=== PATIENT | male | born 1945 | race Caucasian/White ===

== ENCOUNTER 2016-11-17 01:45 | Inpatient (IN) | payer MEDICARE ==
[2016-11-17 02:17] VITALS: BP 109/67
[2016-11-17] MEDS ORDERED: Magnesium Hydroxide (MOM) 30 mL UDC PO PRN (02:18)
--- NOTE | 2016-11-17 10:15 | Diagnostic Imaging Report ---
CHEST X-RAY: AP view INDICATION: Pneumonia COMPARISON: None FINDINGS: Chronic lung changes are seen with hyperinflated lungs. The left costophrenic angle is incompletely visualized. Bibasal pleural thickening is noted. Heart size is normal. Degenerative changes of spine are noted. IMPRESSION: Hyperinflated lungs and probable COPD. No focal consolidation identified.
--- NOTE | 2016-11-18 03:40 | History & Physical ---
ADMIT DATE: 11/17/2016 HISTORY OF PRESENT ILLNESS: This patient is a 71-year-old male patient, brought actually to [facility] ____ senior mental ____. Apparently, the patient was very aggressive and very confused, and the patient is known to have history of coronary artery disease, history of HI in the past, and I was not able to obtain much history from the patient, nor I was able to get any charts at this time. PAST MEDICAL HISTORY: As noted above. PAST SURGICAL HISTORY: As noted above. FAMILY HISTORY: Unremarkable. PHYSICAL EXAMINATION: GENERAL: The patient is awake, alert, complaining of wanting to go home. HEAD: Normal. ENT: Normal. NECK: Supple, nontender. LUNGS: Clear. CARDIOVASCULAR SYSTEM: S1, S2 heard. ABDOMEN: Soft. Bowel sounds are heard. CENTRAL NERVOUS SYSTEM: Grossly normal. DIAGNOSES: Acute psychosis, history of coronary artery disease, history of myocardial infarction, ____ I did not get much more information from the patient regarding his medication as well as regarding ____ diseases and I will follow along with Dr. Parker. JOB# [id number]
--- NOTE | 2016-11-18 08:17 | Psychosocial Evaluation ---
DATE OF SERVICE: 11/17/2016 IDENTIFYING DATA: IDENTIFYING DATA: The patient is a 71-year-old male, living by himself, information obtained by interviewing the patient as well as reviewing the admission papers and they are reliable. JUSTIFICATION OF HOSPITALIZATION: The patient is admitted here on a 5150 as a danger to self and a danger to others. 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 The patient has been evaluated by the [place] [employer] and has been placed on a 5150 as a danger to self and danger to others and has been brought over here. The patient prior to the hospitalization has been mentioning he was on the Zyprexa for his bipolar disorder and also has been taking the Prozac, but has not taken them for a while. The patient's sleep and appetite prior to the hospitalization are reported to be poor. PAST PSYCHIATRIC HISTORY: The patient denies any previous psychiatric hospitalizations, but that may not be true. MEDICAL HISTORY: The patient denies any major medical problems. SUBSTANCE ABUSE HISTORY: The patient has a history of abusing alcohol, but urine drug screen is positive for marijuana. SOCIAL HISTORY: The patient is stating that he has nothing to do with the family, they disowned him and everyone is fighting over his mother's house. The patient is living at a friend's place and he states that he has been staying in their backyard. STRENGTH AND ASSETS: The patient is motivated at this time. MENTAL STATUS EXAMINATION: The patient is a 71-year-old, looking his stated age, superficially cooperative. Eye contact is poor. Mood is noted to be irritable. Affect is constricted. Insight and judgment at this time are noted to be impaired. Impulse control seems to be poor. Coping skills are also noted to be poor. The patient has been having difficult time to cope with the stress. The patient is getting easily irritable and angry. The patient has paranoid delusions, but denies any command hallucinations at this time. The patient has been having acute mood swings. The patient is alert and oriented x 3. The patient is fully aware that he is in the hospital on a 72-hour hold. He is motivated for treatment at this time. DIAGNOSTIC IMPRESSION: AXIS I: A. Bipolar disorder mixed with psychotic symptoms. B. Polysubstance abuse. AXIS II: None. AXIS III: As per Dr. Hawkins. IMMEDIATE TREATMENT PLAN: The patient is going to be started on the Zyprexa and Ativan and Ambien going to be given on a p.r.n. basis. ESTIMATED LENGTH OF STAY: Three to five days. DISCHARGE CRITERIA: When the patient is no longer a threat to self or others and be able to cope up with the stress. JOB# [id number]
--- NOTE | 2016-11-18 21:25 | Progress Notes ---
DATE: 11/18/2016 SUBJECTIVE: The patient was seen in his room, asleep, but easily arousable. The patient appears to be confused, unable to converse in a normal conversation, otherwise the patient is in no acute distress. OBJECTIVE: VITAL SIGNS: Temperature 97.8, heart rate of 66, blood pressure of 133/72, respirations of 19, oxygen of 99% on room air. HEENT: Head is atraumatic and normocephalic. Eyes: Bilateral conjunctivae are clear. Bilateral pupils are equally round and reactive. NECK: Supple. No JVD. CARDIOVASCULAR: S1 and S2 without murmur. PULMONARY: Clear to auscultation. GASTROINTESTINAL: Soft and nontender without guarding. Positive bowel sounds. MUSCULOSKELETAL: No edema, no clubbing, no cyanosis. ASSESSMENT: 1. Acute psychosis. 2. History of myocardial infarction. 3. Coronary artery disease. PLAN: We will keep the patient as inpatient in Geropsych Unit. We will follow up with a psychiatrist to monitor the patient's behavior. Treatment plan will be discussed with Dr. Hawkins. JOB# [id number]
--- NOTE | 2016-11-19 06:24 | General Progress Note ---
Subjective - Review of Systems Events since last encounter: patient still confused Objective - Results Recent Labs: Laboratory Last Values POC Glucose 90 MG/DL (70 - 105) 11/17/16 06:28 - Physical Exam Vitals and I&O: Vital Signs Temp 98.2 F 11/18/16 14:00 Pulse 67 11/18/16 14:00 Resp 20 11/18/16 14:00 BP 122/72 11/18/16 14:00 Pulse Ox 98 11/18/16 14:00 Intake & Output 11/18/16 11/18/16 11/19/16 06:59 18:59 06:59 Intake Total 120 Balance 120 Intake: Oral 120 Other: # Voids 1 2 Active Medications: Current Medications Acetaminophen (Tylenol) 650 mg PO Q4HR PRN PRN Reason: Mild Pain / Temp above 100 Stop: 01/16/17 02:17 Diphenhydramine HCl (Benadryl) 50 mg PO TID PRN PRN Reason: Seasonal Allergies/Itching Stop: 01/16/17 17:00 Last Admin: 11/18/16 21:02 Dose: 50 mg Lorazepam (Ativan) 0.5 mg PO Q4HR PRN; Protocol PRN Reason: Anxiety Stop: 12/17/16 02:17 Magnesium Hydroxide (Milk Of Magnesia) 30 ml PO HS PRN PRN Reason: Constipation Zolpidem Tartrate (Ambien) 5 mg PO HS PRN PRN Reason: Insomnia Stop: 01/16/17 02:17
--- NOTE | 2016-11-19 08:32 | Progress Notes ---
DATE: 11/18/2016 PSYCHIATRIC PROGRESS NOTE TIME PATIENT SEEN: 10:45 a.m. SUBJECTIVE: Staff was spoken to. The patient is interviewed. Mood is noted to be irritable. Affect is constricted. Insight and judgment are noted to be still impaired. Impulse control seems to be poor. Coping skills are also noted to be very poor. The patient has no insight into his illness. The patient has been having difficult time to cope with the stress. The patient is still very paranoid and is not making much sense. The patient is stating that he is trying to clean the ____ from the trees. The patient is placed on Zyprexa and is able to tolerate the medications. PLAN: To continue the patient with the current medications and follow him up with the supportive therapy. JOB# [id number]
--- NOTE | 2016-11-20 06:31 | Progress Notes ---
DATE: 11/19/2016 PSYCHIATRIC PROGRESS NOTE TIME PATIENT SEEN: 2:25 p.m. SUBJECTIVE: Staff was spoken to. The patient is interviewed. Mood is noted to be dysphoric. Coping skills are noted to be poor. The patient has paranoid delusions, but denies any command hallucinations. The patient is reluctant to comply with the treatment. The patient has no tremor in the upper extremities. Gait seems to be improving today. ASSESSMENT: The patient is still psychotic and impulsive. PLAN: To place the patient on Zyprexa. I encouraged the patient to verbalize the concerns rather than to act out. JOB# [id number]
--- NOTE | 2016-11-20 09:49 | General Progress Note ---
Subjective - Review of Systems Events since last encounter: patient still confused Objective - Results Recent Labs: Laboratory Last Values POC Glucose 90 MG/DL (70 - 105) 11/17/16 06:28 - Physical Exam Vitals and I&O: Vital Signs Temp 98.3 F 11/20/16 05:52 Pulse 75 11/20/16 05:52 Resp 20 11/20/16 05:52 BP 152/92 11/20/16 05:52 Pulse Ox 99 11/20/16 05:52 Intake & Output 11/19/16 11/20/16 11/20/16 18:59 06:59 18:59 Intake Total 2200 120 Balance 2200 120 Intake: Oral 2200 120 Other: # Voids 4 2 # Bowel Movements 0 0 Active Medications: Current Medications Acetaminophen (Tylenol) 650 mg PO Q4HR PRN PRN Reason: Mild Pain / Temp above 100 Stop: 01/16/17 02:17 Diphenhydramine HCl (Benadryl) 50 mg PO TID PRN PRN Reason: Seasonal Allergies/Itching Stop: 01/16/17 17:00 Last Admin: 11/19/16 16:07 Dose: 50 mg Lorazepam (Ativan) 0.5 mg PO Q4HR PRN; Protocol PRN Reason: Anxiety Stop: 12/17/16 02:17 Last Admin: 11/19/16 16:07 Dose: 0.5 mg Magnesium Hydroxide (Milk Of Magnesia) 30 ml PO HS PRN PRN Reason: Constipation Olanzapine (Zyprexa) 5 mg PO HS JOVI PRN Reason: Protocol Stop: 01/18/17 20:59 Last Admin: 11/19/16 21:10 Dose: 5 mg Zolpidem Tartrate (Ambien) 5 mg PO HS PRN PRN Reason: Insomnia Stop: 01/16/17 02:17 General: No acute distress Neck: Supple Cardiovascular: Regular rate Abdomen: Bowel sounds, no Distended Assessment/Plan - Problem List Patient Problems: All Active Problems Acute psychosis (Acute) F23 CAD (coronary artery disease) (Acute) I25.10 H/O acute myocardial infarction (Acute) I25.2 - Plan Plan: monitor vitals/diet cpm
--- NOTE | 2016-11-20 23:48 | Progress Notes ---
DATE: 11/20/2016 PSYCHIATRIC PROGRESS NOTE TIME PATIENT SEEN: 10:15 a.m. SUBJECTIVE: Staff was spoken to. The patient is interviewed. Mood is noted to be irritable. Affect is constricted. The patient's insight and judgment at this time are noted to be impaired. Impulse control seems to be poor. Coping skills are also noted to be poor. The patient has been having difficult time to cope with the stress. No side effects to the medications are noted. The patient has been isolative and withdrawn at this time. The patient is very angry at the police in the [place] and ____ they brought him in here for no reason and patient is going on and on. The patient has been placed on Zyprexa, a small dose to help him and patient at this time is stating that he should not be on any medications. The patient has been drinking alcohol and has mild tremor in the upper extremities. ASSESSMENT: The patient is still paranoid. PLAN: To continue the patient with the supportive therapy. I encouraged the patient to verbalize the concerns rather than to act out. JOB# [id number]
--- NOTE | 2016-11-21 10:32 | General Progress Note ---
Subjective - Review of Systems Events since last encounter: patient is irritable Objective - Results Recent Labs: Laboratory Last Values POC Glucose 90 MG/DL (70 - 105) 11/17/16 06:28 - Physical Exam Vitals and I&O: Vital Signs Temp 97.8 F 11/21/16 06:32 Pulse 70 11/21/16 06:32 Resp 20 11/21/16 06:32 BP 133/76 11/21/16 06:32 Pulse Ox 98 11/21/16 06:32 Intake & Output 11/20/16 11/21/16 11/21/16 18:59 06:59 18:59 Intake Total 950 120 Balance 950 120 Intake: Oral 950 120 Other: # Voids 4 1 # Bowel Movements 2 0 Active Medications: Current Medications Acetaminophen (Tylenol) 650 mg PO Q4HR PRN PRN Reason: Mild Pain / Temp above 100 Stop: 01/16/17 02:17 Diphenhydramine HCl (Benadryl) 50 mg PO TID PRN PRN Reason: Seasonal Allergies/Itching Stop: 01/16/17 17:00 Last Admin: 11/21/16 08:29 Dose: 50 mg Lorazepam (Ativan) 0.5 mg PO Q4HR PRN; Protocol PRN Reason: Anxiety Stop: 12/17/16 02:17 Last Admin: 11/19/16 16:07 Dose: 0.5 mg Magnesium Hydroxide (Milk Of Magnesia) 30 ml PO HS PRN PRN Reason: Constipation Olanzapine (Zyprexa) 5 mg PO HS JOVI PRN Reason: Protocol Stop: 01/18/17 20:59 Last Admin: 11/20/16 20:43 Dose: 5 mg Zolpidem Tartrate (Ambien) 5 mg PO HS PRN PRN Reason: Insomnia Stop: 01/16/17 02:17 Last Admin: 11/20/16 21:30 Dose: 5 mg General: No acute distress HEENT: Atraumatic Neck: Supple Cardiovascular: Regular rate Abdomen: Bowel sounds, Distended Assessment/Plan - Problem List Patient Problems: All Active Problems Acute psychosis (Acute) F23 CAD (coronary artery disease) (Acute) I25.10 H/O acute myocardial infarction (Acute) I25.2 - Plan Plan: monitor vitals/diet cpm
--- NOTE | 2016-11-22 05:05 | Progress Notes ---
DATE: 11/21/2016 PSYCHIATRIC PROGRESS NOTE TIME PATIENT SEEN: 10:45 a.m. SUBJECTIVE: Staff was spoken to. The patient is interviewed. Mood is noted to be irritable. Affect is constricted. Insight and judgment are noted to be still impaired. Impulse control seems to be limited. Coping skills are also noted to be limited. The patient has been having difficult time to cope with the stress. The patient is very angry at the staff, police at the [place], and he states he does not want to go back there. The patient has no place to return to. ASSESSMENT: The patient is still grossly psychotic. PLAN: To continue the patient with supportive therapy and followup. JOB# [id number]
--- NOTE | 2016-11-22 14:53 | General Progress Note ---
Subjective - Review of Systems Events since last encounter: patient confused Objective - Results Recent Labs: Laboratory Last Values POC Glucose 90 MG/DL (70 - 105) 11/17/16 06:28 - Physical Exam Vitals and I&O: Vital Signs Temp 97.8 F 11/22/16 06:41 Pulse 87 11/22/16 06:41 Resp 20 11/22/16 06:41 BP 107/79 11/22/16 06:41 Pulse Ox 97 11/22/16 06:41 Intake & Output 11/21/16 11/22/16 11/22/16 18:59 06:59 18:59 Intake Total 1500 240 Balance 1500 240 Intake: Oral 1500 240 Other: # Voids 4 3 # Bowel Movements 1 0 Active Medications: Current Medications Acetaminophen (Tylenol) 650 mg PO Q4HR PRN PRN Reason: Mild Pain / Temp above 100 Stop: 01/16/17 02:17 Diphenhydramine HCl (Benadryl) 50 mg PO TID PRN PRN Reason: Seasonal Allergies/Itching Stop: 01/16/17 17:00 Last Admin: 11/22/16 10:03 Dose: 50 mg Lorazepam (Ativan) 0.5 mg PO Q4HR PRN; Protocol PRN Reason: Anxiety Stop: 12/17/16 02:17 Last Admin: 11/21/16 16:57 Dose: 0.5 mg Magnesium Hydroxide (Milk Of Magnesia) 30 ml PO HS PRN PRN Reason: Constipation Olanzapine (Zyprexa) 5 mg PO HS JOVI PRN Reason: Protocol Stop: 01/18/17 20:59 Last Admin: 11/21/16 20:19 Dose: 5 mg Zolpidem Tartrate (Ambien) 5 mg PO HS PRN PRN Reason: Insomnia Stop: 01/16/17 02:17 Last Admin: 11/20/16 21:30 Dose: 5 mg General: No acute distress HEENT: Atraumatic Cardiovascular: Regular rate Abdomen: Bowel sounds Assessment/Plan - Problem List Patient Problems: All Active Problems Acute psychosis (Acute) F23 CAD (coronary artery disease) (Acute) I25.10 H/O acute myocardial infarction (Acute) I25.2 - Plan Plan: monitor vitals/diet cpm
--- NOTE | 2016-11-22 16:16 | Admit Criteria Form ---
Admit Criteria Forms - Admit Criteria Diagnosis: PSYCHIATRIC DISORDERS Clinical Indications for Inpatient Care (Place 'X' for any and all applicable criteria): Ongoing inpatient care may be needed for ANY ONE of the following(1)(2)(3)(4)(6) (7)(8): [ ]I. Danger to self or others not manageable at lower level of care. [ ]II. Grave disability (eg, inability to perform self care necessary at lower level of care) [ ]III. Agitation or inappropriate behavior interfering with care for primary condition (eg, attempting to discontinue lines or drains prematurely, unable to cooperate with respiratory care) [X ]IV. Severe disability or disorder indicated by ALL of the following: [X ]a) Severe behavioral health disorder-related symptoms or condition indicated by ANY ONE of the following: [X ]i) Severe problem with cognition, memory, judgment, or impulse control [X ]ii) Severe clinical manifestations (eg, hallucinations , delusions, other acute psychotic symptoms, [place], extreme agitation or anxiety) [X ]b) Patient management at lower level of care is not feasible until acute intervention or modification is initiated. Extended stay beyond goal length of stay for the primary condition may be indicated when ANY ONE of the following is present: (1)(2)(3)(4): [ ]a) Patient is a danger to self or others and not manageable at lower level of care. [ ]b) Behavior crisis management, including physical or chemical restraints, is required and is not available at a lower level of care. [ ]c) Behavioral symptoms (e.g., agitation, somnolence, inappropriate behavior) are present, and are not manageable at a lower level of care. [ ]d) Patient cannot understand follow-up treatment and crisis plan. [ ]e) Provider and supports are not sufficiently available at lower level of care. [ ]f) Patient cannot participate (e.g., verify absence of plan for harm) and is in needed of monitoring. The [facility] content [facility] by [facility] has been revised. The portions of the content which have been revised are identified through the use of italic text or in bold, and [facility] has neither reviewed nor approved the modified material. All other unmodified content is copyright [facility]. Please see references footnoted in the original [facility] edition 2016 Admit Criteria Met?: Yes
--- NOTE | 2016-11-23 08:22 | General Progress Note ---
Subjective - Review of Systems Events since last encounter: patient continues to be irritable but not aggressive Objective - Results Recent Labs: Laboratory Last Values POC Glucose 90 MG/DL (70 - 105) 11/17/16 06:28 - Physical Exam Vitals and I&O: Vital Signs Temp 97 F 11/23/16 06:26 Pulse 95 11/23/16 06:26 Resp 20 11/23/16 06:26 BP 129/84 11/23/16 06:26 Pulse Ox 100 11/23/16 06:26 Intake & Output 11/22/16 11/23/16 11/23/16 18:59 06:59 18:59 Intake Total 1100 120 Balance 1100 120 Weight (lbs) 62.369 kg Intake: Oral 1100 120 Other: # Voids 4 3 # Bowel Movements 1 Active Medications: Current Medications Acetaminophen (Tylenol) 650 mg PO Q4HR PRN PRN Reason: Mild Pain / Temp above 100 Stop: 01/16/17 02:17 Diphenhydramine HCl (Benadryl) 50 mg PO TID PRN PRN Reason: Seasonal Allergies/Itching Stop: 01/16/17 17:00 Last Admin: 11/22/16 10:03 Dose: 50 mg Lorazepam (Ativan) 0.5 mg PO Q4HR PRN; Protocol PRN Reason: Anxiety Stop: 12/17/16 02:17 Last Admin: 11/21/16 16:57 Dose: 0.5 mg Magnesium Hydroxide (Milk Of Magnesia) 30 ml PO HS PRN PRN Reason: Constipation Olanzapine (Zyprexa) 10 mg PO HS JOVI PRN Reason: Protocol Stop: 01/21/17 19:57 Last Admin: 11/22/16 21:11 Dose: 10 mg Zolpidem Tartrate (Ambien) 5 mg PO HS PRN PRN Reason: Insomnia Stop: 01/16/17 02:17 Last Admin: 11/20/16 21:30 Dose: 5 mg General: No acute distress HEENT: Atraumatic Neck: Supple Cardiovascular: Regular rate Abdomen: Bowel sounds Assessment/Plan - Problem List Patient Problems: All Active Problems Acute psychosis (Acute) F23 CAD (coronary artery disease) (Acute) I25.10 H/O acute myocardial infarction (Acute) I25.2 - Plan Plan: monitor vitals/diet cpm Nutritional Asmnt/Malnutr-PDOC - Dietary Evaluation Malnutrition Findings (Please click <Entered> for more info): Nutritional Asmnt/Malnutrition Start: 11/22/16 16: 45 Text: Status: Complete Freq: Document 11/22/16 16:46 CHAN (Rec: 11/22/16 16:58 [email or web address]) Nutritional Asmnt/Malnutrition Patient General Information Nutritional Screening Diagnosis Diagnosis Bipolar disorder mixed with psychotic symptoms, polysubstance abuse, 5150 Pertinent Medical Hx/Surgical Hx CAD, CT Subjective Information 71 year old male, considered homeless. Spoke to pt resting in bed, pt was pleasant and cooperative. Pt curled up under blanket, limited physical assessment, however appears overall thin without significant wasting noted. Teeth intact, denied difficulties eating, no food preferences, no allergies, denied GI problems. Pt stated appetite usually good. Pt stated UBW 145-150lb. CBW via bedscale 137.5lb. Pt appeared unaware of this weight, denied recent weight loss/changes. Avg PO itnake 75-100% of meals since adm, meeting nutritional needs. Current Diet Order/ Nutrition Support Regular Pertinent Medications MOM Pertinent Labs Reviewed. Nutritional Hx/Data Height 1.75 m Height (Calculated Centimeters) 175.3 Current Weight (lbs) 62.369 kg Weight (Calculated Kilograms) 62.4 Weight (Calculated Grams) 15674.0 Usual body Weight (lbs) 145 [place] Body Weight 160 GI Symptoms Food Allergies No Skin Integrity/Comment: Yasir Pack. Skin intact. Current %PO Good (75-100%) Estimated Nutritional Goals BEE in Kcals: Using Current wt Calories/Kcals/Kg CBW 137.5lb/62.4kg Kcals Calculated 1560-1872kcal (25-30kcal/kg) Protein: Using Current wt Protein Calculated 62g (1g/kg) Fluid: ml 1560-1872ml (1ml/kcal) Nutritional Problem 1. Problem Problem No nutritional problem at this time. Intervention/Recommendation Comments 1. Continue with current diet order. Avg PO intake is adequate. 2. Monitor weight. CBW via bedscale 137.5lb, pt report UBW 145-150lb, pt denied recent weight changes. Expected Outcomes/Goals Expected Outcomes/Goals 1. PO intake conintue to meet at least 75% of estimated nutritional needs.
--- NOTE | 2016-11-23 19:56 | Progress Notes ---
DATE: 11/22/2016 PSYCHIATRIC PROGRESS NOTE TIME PATIENT SEEN: 6:30 p.m. SUBJECTIVE: Staff was spoken to. The patient is interviewed. Mood is noted to be irritable. Affect is constricted. Insight and judgment are noted to be still impaired. The patient is very argumentative and demanding. The patient has no place to return to. Continues to be very paranoid and has been mentioning that he was trying to prune the trees and he is picked up for no reason and he is very angry . ASSESSMENT: The patient is still psychotic and impulsive. PLAN: To increase the dose on the Zyprexa and followup. JOB# [id number]
--- NOTE | 2016-11-24 05:06 | Progress Notes ---
DATE: 11/23/2016 PSYCHIATRIC PROGRESS NOTE TIME PATIENT SEEN: 10:30 a.m. SUBJECTIVE: Staff was spoken to. The patient is interviewed. Mood is noted to be less irritable, paranoia is coming down. Insight and judgment are noted to be improving. No side effects to the medications are noted. The patient, however, has been stating that he was volunteering reason why he has been brought over here. The patient is stating that he has a place to stay. There is no reason for me to worry, and he wants to be discharged to the [facility]. ASSESSMENT: The patient is still psychotic. PLAN: To continue the Zyprexa and followup. JOB# [id number]
--- NOTE | 2016-11-24 15:18 | General Progress Note ---
Subjective - Review of Systems Events since last encounter: patient doing better Objective - Results Recent Labs: Laboratory Last Values POC Glucose 90 MG/DL (70 - 105) 11/17/16 06:28 - Physical Exam Vitals and I&O: Vital Signs Temp 97.6 F 11/24/16 06:34 Pulse 78 11/24/16 06:34 Resp 20 11/24/16 06:34 BP 134/87 11/24/16 06:34 Pulse Ox 97 11/24/16 06:34 Intake & Output 11/23/16 11/24/16 11/24/16 18:59 06:59 18:59 Intake Total 1200 120 Balance 1200 120 Intake: Oral 1200 120 Other: # Voids 4 3 # Bowel Movements 1 Active Medications: Current Medications Acetaminophen (Tylenol) 650 mg PO Q4HR PRN PRN Reason: Mild Pain / Temp above 100 Stop: 01/16/17 02:17 Diphenhydramine HCl (Benadryl) 50 mg PO TID PRN PRN Reason: Seasonal Allergies/Itching Stop: 01/16/17 17:00 Last Admin: 11/23/16 16:18 Dose: 50 mg Lorazepam (Ativan) 0.5 mg PO Q4HR PRN; Protocol PRN Reason: Anxiety Stop: 12/17/16 02:17 Last Admin: 11/21/16 16:57 Dose: 0.5 mg Magnesium Hydroxide (Milk Of Magnesia) 30 ml PO HS PRN PRN Reason: Constipation Olanzapine (Zyprexa) 10 mg PO HS JOVI PRN Reason: Protocol Stop: 01/21/17 19:57 Last Admin: 11/23/16 20:34 Dose: 10 mg Zolpidem Tartrate (Ambien) 5 mg PO HS PRN PRN Reason: Insomnia Stop: 01/16/17 02:17 Last Admin: 11/23/16 20:45 Dose: 5 mg General: No acute distress HEENT: Atraumatic Neck: Supple Cardiovascular: Regular rate Abdomen: Bowel sounds Assessment/Plan - Problem List Patient Problems: All Active Problems Acute psychosis (Acute) F23 CAD (coronary artery disease) (Acute) I25.10 H/O acute myocardial infarction (Acute) I25.2 - Plan Plan: monitor vitals/diet cpm Nutritional Asmnt/Malnutr-PDOC - Dietary Evaluation Malnutrition Findings (Please click <Entered> for more info): Nutritional Asmnt/Malnutrition Start: 11/22/16 16: 45 Text: Status: Complete Freq: Document 11/22/16 16:46 GSRONI (Rec: 11/22/16 16:58 [email or web address]) Nutritional Asmnt/Malnutrition Patient General Information Nutritional Screening Diagnosis Diagnosis Bipolar disorder mixed with psychotic symptoms, polysubstance abuse, 5150 Pertinent Medical Hx/Surgical Hx CAD, [place] Subjective Information 71 year old male, considered homeless. Spoke to pt resting in bed, pt was pleasant and cooperative. Pt curled up under blanket, limited physical assessment, however appears overall thin without significant wasting noted. Teeth intact, denied difficulties eating, no food preferences, no allergies, denied GI problems. Pt stated appetite usually good. Pt stated UBW 145-150lb. CBW via bedscale 137.5lb. Pt appeared unaware of this weight, denied recent weight loss/changes. Avg PO itnake 75-100% of meals since adm, meeting nutritional needs. Current Diet Order/ Nutrition Support Regular Pertinent Medications MOM Pertinent Labs Reviewed. Nutritional Hx/Data Height 1.75 m Height (Calculated Centimeters) 175.3 Current Weight (lbs) 62.369 kg Weight (Calculated Kilograms) 62.4 Weight (Calculated Grams) 97325.0 Usual body Weight (lbs) 145 [place] Body Weight 160 GI Symptoms Food Allergies No Skin Integrity/Comment: Yasir 20. Skin intact. Current %PO Good (75-100%) Estimated Nutritional Goals BEE in Kcals: Using Current wt Calories/Kcals/Kg CBW 137.5lb/62.4kg Kcals Calculated 1560-1872kcal (25-30kcal/kg) Protein: Using Current wt Protein Calculated 62g (1g/kg) Fluid: ml 1560-1872ml (1ml/kcal) Nutritional Problem 1. Problem Problem No nutritional problem at this time. Intervention/Recommendation Comments 1. Continue with current diet order. Avg PO intake is adequate. 2. Monitor weight. CBW via bedscale 137.5lb, pt report UBW 145-150lb, pt denied recent weight changes. Expected Outcomes/Goals Expected Outcomes/Goals 1. PO intake conintue to meet at least 75% of estimated nutritional needs.
--- NOTE | 2016-11-25 09:06 | Progress Notes ---
DATE: 11/24/2016 PSYCHIATRIC PROGRESS NOTE TIME PATIENT SEEN: 10:00 a.m. SUBJECTIVE: Staff was spoken to. The patient is interviewed. Mood is noted to be irritable. Affect is constricted. The patient has no place to return to. The patient is stating that he has the address, but he forgot and child welfare caseworker has been working with him. Possibly, the patient is going to be referred to a longterm and the patient at this time is very angry and upset. The patient is currently on Zyprexa and has been able to tolerate the medication. PLAN: To continue the medications and follow him up with supportive therapy. the patient is not ready to be discharged to a lower level of care yet. JOB# [id number]
--- NOTE | 2016-11-25 19:45 | General Progress Note ---
Subjective - Review of Systems Events since last encounter: patient is very irritable still gets upset quickly , patient denies any ches pain , sob Objective - Results Recent Labs: Laboratory Last Values POC Glucose 90 MG/DL (70 - 105) 11/17/16 06:28 - Physical Exam Vitals and I&O: Vital Signs Temp 98.2 F 11/25/16 14:23 Pulse 75 11/25/16 14:23 Resp 20 11/25/16 14:23 BP 127/77 11/25/16 14:23 Pulse Ox 98 11/25/16 14:23 Intake & Output 11/25/16 11/25/16 11/26/16 06:59 18:59 06:59 Intake Total 1200 Balance 1200 Intake: Oral 1200 Other: # Voids 4 # Bowel Movements 2 Active Medications: Current Medications Acetaminophen (Tylenol) 650 mg PO Q4HR PRN PRN Reason: Mild Pain / Temp above 100 Stop: 01/16/17 02:17 Diphenhydramine HCl (Benadryl) 50 mg PO TID PRN PRN Reason: Seasonal Allergies/Itching Stop: 01/16/17 17:00 Last Admin: 11/24/16 20:26 Dose: 50 mg Lorazepam (Ativan) 0.5 mg PO Q4HR PRN; Protocol PRN Reason: Anxiety Stop: 12/17/16 02:17 Last Admin: 11/21/16 16:57 Dose: 0.5 mg Magnesium Hydroxide (Milk Of Magnesia) 30 ml PO HS PRN PRN Reason: Constipation Olanzapine (Zyprexa) 10 mg PO HS JOVI PRN Reason: Protocol Stop: 01/21/17 19:57 Last Admin: 11/24/16 20:26 Dose: 10 mg Zolpidem Tartrate (Ambien) 5 mg PO HS PRN PRN Reason: Insomnia Stop: 01/16/17 02:17 Last Admin: 11/24/16 20:26 Dose: 5 mg General: No acute distress, no Moderate distress HEENT: Atraumatic Neck: Other Cardiovascular: Regular rate Abdomen: Bowel sounds Assessment/Plan - Problem List Patient Problems: All Active Problems Acute psychosis (Acute) F23 CAD (coronary artery disease) (Acute) I25.10 H/O acute myocardial infarction (Acute) I25.2 - Plan Plan: monitor vitals/diet f/up psych as problems arise cpm Nutritional Asmnt/Malnutr-PDOC - Dietary Evaluation Malnutrition Findings (Please click <Entered> for more info): Nutritional Asmnt/Malnutrition Start: 11/22/16 16: 45 Text: Status: Complete Freq: Document 11/22/16 16:46 GSRONI (Rec: 11/22/16 16:58 [email or web address]) Nutritional Asmnt/Malnutrition Patient General Information Nutritional Screening Diagnosis Diagnosis Bipolar disorder mixed with psychotic symptoms, polysubstance abuse, 5150 Pertinent Medical Hx/Surgical Hx CAD, [place] Subjective Information 71 year old male, considered homeless. Spoke to pt resting in bed, pt was pleasant and cooperative. Pt curled up under blanket, limited physical assessment, however appears overall thin without significant wasting noted. Teeth intact, denied difficulties eating, no food preferences, no allergies, denied GI problems. Pt stated appetite usually good. Pt stated UBW 145-150lb. CBW via bedscale 137.5lb. Pt appeared unaware of this weight, denied recent weight loss/changes. Avg PO itnake 75-100% of meals since adm, meeting nutritional needs. Current Diet Order/ Nutrition Support Regular Pertinent Medications MOM Pertinent Labs Reviewed. Nutritional Hx/Data Height 1.75 m Height (Calculated Centimeters) 175.3 Current Weight (lbs) 62.369 kg Weight (Calculated Kilograms) 62.4 Weight (Calculated Grams) 39807.0 Usual body Weight (lbs) 145 [place] Body Weight 160 GI Symptoms Food Allergies No Skin Integrity/Comment: Yasir 20. Skin intact. Current %PO Good (75-100%) Estimated Nutritional Goals BEE in Kcals: Using Current wt Calories/Kcals/Kg CBW 137.5lb/62.4kg Kcals Calculated 1560-1872kcal (25-30kcal/kg) Protein: Using Current wt Protein Calculated 62g (1g/kg) Fluid: ml 1560-1872ml (1ml/kcal) Nutritional Problem 1. Problem Problem No nutritional problem at this time. Intervention/Recommendation Comments 1. Continue with current diet order. Avg PO intake is adequate. 2. Monitor weight. CBW via bedscale 137.5lb, pt report UBW 145-150lb, pt denied recent weight changes. Expected Outcomes/Goals Expected Outcomes/Goals 1. PO intake conintue to meet at least 75% of estimated nutritional needs.
--- NOTE | 2016-11-25 22:32 | Progress Notes ---
DATE: 11/25/2016 PSYCHIATRIC PROGRESS NOTE TIME PATIENT SEEN: 10:45 a.m. SUBJECTIVE: Staff was spoken to. The patient is interviewed. Mood is noted to be irritable. Affect is constricted. The patient's coping skills are noted to be very poor. The patient, however, has been stating that he has a place to go, but the case resolution specialist was not able to verify where the patient is going to be discharged. The patient is paranoid at this time and is getting easily irritable. The patient is currently on Zyprexa and able to tolerate the medication. ASSESSMENT: The patient is still psychotic. PLAN: To continue the patient with the current medications and follow up. JOB# [id number]
--- NOTE | 2016-11-26 12:54 | General Progress Note ---
Subjective - Review of Systems Events since last encounter: irritable but denies any sob, cp , pain Objective - Results Recent Labs: Laboratory Last Values POC Glucose 90 MG/DL (70 - 105) 11/17/16 06:28 - Physical Exam Vitals and I&O: Vital Signs Temp 97.9 F 11/25/16 20:12 Pulse 85 11/25/16 20:12 Resp 20 11/25/16 20:12 BP 140/79 11/25/16 20:12 Pulse Ox 98 11/25/16 20:12 Intake & Output 11/25/16 11/26/16 11/26/16 18:59 06:59 18:59 Intake Total 1200 240 Balance 1200 240 Intake: Oral 1200 240 Other: # Voids 4 1 # Bowel Movements 2 Active Medications: Current Medications Acetaminophen (Tylenol) 650 mg PO Q4HR PRN PRN Reason: Mild Pain / Temp above 100 Stop: 01/16/17 02:17 Diphenhydramine HCl (Benadryl) 50 mg PO TID PRN PRN Reason: Seasonal Allergies/Itching Stop: 01/16/17 17:00 Last Admin: 11/24/16 20:26 Dose: 50 mg Lorazepam (Ativan) 0.5 mg PO Q4HR PRN; Protocol PRN Reason: Anxiety Stop: 12/17/16 02:17 Last Admin: 11/21/16 16:57 Dose: 0.5 mg Magnesium Hydroxide (Milk Of Magnesia) 30 ml PO HS PRN PRN Reason: Constipation Olanzapine (Zyprexa) 10 mg PO HS JOVI PRN Reason: Protocol Stop: 01/21/17 19:57 Last Admin: 11/25/16 21:09 Dose: 10 mg Zolpidem Tartrate (Ambien) 5 mg PO HS PRN PRN Reason: Insomnia Stop: 01/16/17 02:17 Last Admin: 11/25/16 21:09 Dose: 5 mg Assessment/Plan - Problem List Patient Problems: All Active Problems Acute psychosis (Acute) F23 CAD (coronary artery disease) (Acute) I25.10 H/O acute myocardial infarction (Acute) I25.2 - Plan Plan: monitor vitals/diet f/up psych as problems arise cpm Nutritional Asmnt/Malnutr-PDOC - Dietary Evaluation Malnutrition Findings (Please click <Entered> for more info): Nutritional Asmnt/Malnutrition Start: 11/22/16 16: 45 Text: Status: Complete Freq: Document 11/22/16 16:46 GSRONI (Rec: 11/22/16 16:58 [email or web address]) Nutritional Asmnt/Malnutrition Patient General Information Nutritional Screening Diagnosis Diagnosis Bipolar disorder mixed with psychotic symptoms, polysubstance abuse, 5150 Pertinent Medical Hx/Surgical Hx CAD, [place] Subjective Information 71 year old male, considered homeless. Spoke to pt resting in bed, pt was pleasant and cooperative. Pt curled up under blanket, limited physical assessment, however appears overall thin without significant wasting noted. Teeth intact, denied difficulties eating, no food preferences, no allergies, denied GI problems. Pt stated appetite usually good. Pt stated UBW 145-150lb. CBW via bedscale 137.5lb. Pt appeared unaware of this weight, denied recent weight loss/changes. Avg PO itnake 75-100% of meals since adm, meeting nutritional needs. Current Diet Order/ Nutrition Support Regular Pertinent Medications MOM Pertinent Labs Reviewed. Nutritional Hx/Data Height 1.75 m Height (Calculated Centimeters) 175.3 Current Weight (lbs) 62.369 kg Weight (Calculated Kilograms) 62.4 Weight (Calculated Grams) 29726.0 Usual body Weight (lbs) 145 [place] Body Weight 160 GI Symptoms Food Allergies No Skin Integrity/Comment: Yasir Pack. Skin intact. Current %PO Good (75-100%) Estimated Nutritional Goals BEE in Kcals: Using Current wt Calories/Kcals/Kg CBW 137.5lb/62.4kg Kcals Calculated 1560-1872kcal (25-30kcal/kg) Protein: Using Current wt Protein Calculated 62g (1g/kg) Fluid: ml 1560-1872ml (1ml/kcal) Nutritional Problem 1. Problem Problem No nutritional problem at this time. Intervention/Recommendation Comments 1. Continue with current diet order. Avg PO intake is adequate. 2. Monitor weight. CBW via bedscale 137.5lb, pt report UBW 145-150lb, pt denied recent weight changes. Expected Outcomes/Goals Expected Outcomes/Goals 1. PO intake conintue to meet at least 75% of estimated nutritional needs.
--- NOTE | 2016-11-26 19:17 | Progress Notes ---
DATE: 11/26/2016 PSYCHIATRIC PROGRESS NOTE TIME PATIENT SEEN: 9:15 a.m. SUBJECTIVE: Staff was spoken to. The patient is interviewed. Mood is noted to be less irritable. Affect is appropriate. Not suicidal or homicidal today. The patient, however, has been stating that no one is believing him with regards him having a place to stay and he states that he has his place and there is no need for anyone to worry and he wants to be discharged. information systems manager has been trying to verify the placement situation, but so far, they are not able to come up with any conclusive that the patient has a place to stay. ASSESSMENT: The patient is still psychotic. PLAN: To continue the patient with Zyprexa and followup. JOB# [id number]
--- NOTE | 2016-11-27 07:38 | General Progress Note ---
Subjective - Review of Systems Events since last encounter: no distress patient better today Objective - Results Recent Labs: Laboratory Last Values POC Glucose 90 MG/DL (70 - 105) 11/17/16 06:28 - Physical Exam Vitals and I&O: Vital Signs Temp 98.1 F 11/27/16 06:22 Pulse 96 11/27/16 06:22 Resp 20 11/27/16 06:22 BP 140/77 11/27/16 06:22 Pulse Ox 99 11/27/16 06:22 Intake & Output 11/26/16 11/27/16 11/27/16 18:59 06:59 18:59 Intake Total 2400 480 Balance 2400 480 Intake: Oral 2400 480 Other: # Voids 4 2 # Bowel Movements 0 0 Active Medications: Current Medications Acetaminophen (Tylenol) 650 mg PO Q4HR PRN PRN Reason: Mild Pain / Temp above 100 Stop: 01/16/17 02:17 Diphenhydramine HCl (Benadryl) 50 mg PO TID PRN PRN Reason: Seasonal Allergies/Itching Stop: 01/16/17 17:00 Last Admin: 11/26/16 20:47 Dose: 50 mg Lorazepam (Ativan) 0.5 mg PO Q4HR PRN; Protocol PRN Reason: Anxiety Stop: 12/17/16 02:17 Last Admin: 11/21/16 16:57 Dose: 0.5 mg Magnesium Hydroxide (Milk Of Magnesia) 30 ml PO HS PRN PRN Reason: Constipation Olanzapine (Zyprexa) 10 mg PO HS JOVI PRN Reason: Protocol Stop: 01/21/17 19:57 Last Admin: 11/26/16 20:47 Dose: 10 mg Zolpidem Tartrate (Ambien) 5 mg PO HS PRN PRN Reason: Insomnia Stop: 01/16/17 02:17 Last Admin: 11/26/16 20:47 Dose: 5 mg General: No acute distress HEENT: Atraumatic Neck: Supple Cardiovascular: Regular rate Lungs: Clear to auscultation Abdomen: Bowel sounds Assessment/Plan - Problem List Patient Problems: All Active Problems Acute psychosis (Acute) F23 CAD (coronary artery disease) (Acute) I25.10 H/O acute myocardial infarction (Acute) I25.2 - Plan Plan: monitor vitals/diet f/up psych as problems arise cpm Nutritional Asmnt/Malnutr-PDOC - Dietary Evaluation Malnutrition Findings (Please click <Entered> for more info): Nutritional Asmnt/Malnutrition Start: 11/22/16 16: 45 Text: Status: Complete Freq: Document 11/22/16 16:46 CHAN (Rec: 11/22/16 16:58 GSRONI [email or web address]) Nutritional Asmnt/Malnutrition Patient General Information Nutritional Screening Diagnosis Diagnosis Bipolar disorder mixed with psychotic symptoms, polysubstance abuse, 5150 Pertinent Medical Hx/Surgical Hx CAD, [place] Subjective Information 71 year old male, considered homeless. Spoke to pt resting in bed, pt was pleasant and cooperative. Pt curled up under blanket, limited physical assessment, however appears overall thin without significant wasting noted. Teeth intact, denied difficulties eating, no food preferences, no allergies, denied GI problems. Pt stated appetite usually good. Pt stated UBW 145-150lb. CBW via bedscale 137.5lb. Pt appeared unaware of this weight, denied recent weight loss/changes. Avg PO itnake 75-100% of meals since adm, meeting nutritional needs. Current Diet Order/ Nutrition Support Regular Pertinent Medications MOM Pertinent Labs Reviewed. Nutritional Hx/Data Height 1.75 m Height (Calculated Centimeters) 175.3 Current Weight (lbs) 62.369 kg Weight (Calculated Kilograms) 62.4 Weight (Calculated Grams) 08169.0 Usual body Weight (lbs) 145 [place] Body Weight 160 GI Symptoms Food Allergies No Skin Integrity/Comment: Yasir 20. Skin intact. Current %PO Good (75-100%) Estimated Nutritional Goals BEE in Kcals: Using Current wt Calories/Kcals/Kg CBW 137.5lb/62.4kg Kcals Calculated 1560-1872kcal (25-30kcal/kg) Protein: Using Current wt Protein Calculated 62g (1g/kg) Fluid: ml 1560-1872ml (1ml/kcal) Nutritional Problem 1. Problem Problem No nutritional problem at this time. Intervention/Recommendation Comments 1. Continue with current diet order. Avg PO intake is adequate. 2. Monitor weight. CBW via bedscale 137.5lb, pt report UBW 145-150lb, pt denied recent weight changes. Expected Outcomes/Goals Expected Outcomes/Goals 1. PO intake conintue to meet at least 75% of estimated nutritional needs.
--- NOTE | 2016-11-28 00:39 | Progress Notes ---
DATE: 11/27/2016 PSYCHIATRIC PROGRESS NOTE TIME PATIENT SEEN: 9:30 a.m. SUBJECTIVE: Staff was spoken to. The patient is interviewed. Mood is noted to be irritable. Affect is constricted. Insight and judgment are noted to be still impaired. Impulse control seems to be improving. No side effects to the medications are noted. The patient has been having difficult time to cope with the stress at this time. The patient is stating that he has a place to go to, but no one is believing him. ASSESSMENT: The patient is still psychotic. PLAN: To continue the patient with the supportive therapy. I encouraged the patient to verbalize the concerns rather than to act out. The patient is currently on Zyprexa. We will continue the medication and followup. JOB# [id number]
--- NOTE | 2016-11-28 08:53 | General Progress Note ---
Subjective - Review of Systems Events since last encounter: Patient is still psychotic Objective - Results Recent Labs: Laboratory Last Values POC Glucose 90 MG/DL (70 - 105) 11/17/16 06:28 - Physical Exam Vitals and I&O: Vital Signs Temp 97.8 F 11/28/16 06:57 Pulse 75 11/28/16 06:57 Resp 20 11/28/16 06:57 BP 102/69 11/28/16 06:57 Pulse Ox 97 11/28/16 06:57 Intake & Output 11/27/16 11/28/16 11/28/16 18:59 06:59 18:59 Intake Total 2800 0 Balance 2800 0 Intake: Oral 2800 0 Other: # Voids 5 3 # Bowel Movements 1 0 Active Medications: Current Medications Acetaminophen (Tylenol) 650 mg PO Q4HR PRN PRN Reason: Mild Pain / Temp above 100 Stop: 01/16/17 02:17 Diphenhydramine HCl (Benadryl) 50 mg PO TID PRN PRN Reason: Seasonal Allergies/Itching Stop: 01/16/17 17:00 Last Admin: 11/27/16 15:28 Dose: 50 mg Lorazepam (Ativan) 0.5 mg PO Q4HR PRN; Protocol PRN Reason: Anxiety Stop: 12/17/16 02:17 Last Admin: 11/21/16 16:57 Dose: 0.5 mg Magnesium Hydroxide (Milk Of Magnesia) 30 ml PO HS PRN PRN Reason: Constipation Olanzapine (Zyprexa) 10 mg PO HS JOVI PRN Reason: Protocol Stop: 01/21/17 19:57 Last Admin: 11/27/16 20:37 Dose: 10 mg Zolpidem Tartrate (Ambien) 5 mg PO HS PRN PRN Reason: Insomnia Stop: 01/16/17 02:17 Last Admin: 11/27/16 20:37 Dose: 5 mg General: No acute distress HEENT: Atraumatic Cardiovascular: Regular rate Neurological: Normal gait Assessment/Plan - Problem List Patient Problems: All Active Problems Acute psychosis (Acute) F23 CAD (coronary artery disease) (Acute) I25.10 H/O acute myocardial infarction (Acute) I25.2 - Plan Plan: monitor vitals/diet f/up psych as problems arise cpm Nutritional Asmnt/Malnutr-PDOC - Dietary Evaluation Malnutrition Findings (Please click <Entered> for more info): Nutritional Asmnt/Malnutrition Start: 11/22/16 16: 45 Text: Status: Complete Freq: Document 11/22/16 16:46 GSRONI (Rec: 11/22/16 16:58 [email or web address]) Nutritional Asmnt/Malnutrition Patient General Information Nutritional Screening Diagnosis Diagnosis Bipolar disorder mixed with psychotic symptoms, polysubstance abuse, 5150 Pertinent Medical Hx/Surgical Hx CAD, [place] Subjective Information 71 year old male, considered homeless. Spoke to pt resting in bed, pt was pleasant and cooperative. Pt curled up under blanket, limited physical assessment, however appears overall thin without significant wasting noted. Teeth intact, denied difficulties eating, no food preferences, no allergies, denied GI problems. Pt stated appetite usually good. Pt stated UBW 145-150lb. CBW via bedscale 137.5lb. Pt appeared unaware of this weight, denied recent weight loss/changes. Avg PO itnake 75-100% of meals since adm, meeting nutritional needs. Current Diet Order/ Nutrition Support Regular Pertinent Medications MOM Pertinent Labs Reviewed. Nutritional Hx/Data Height 1.75 m Height (Calculated Centimeters) 175.3 Current Weight (lbs) 62.369 kg Weight (Calculated Kilograms) 62.4 Weight (Calculated Grams) 54392.0 Usual body Weight (lbs) 145 [place] Body Weight 160 GI Symptoms Food Allergies No Skin Integrity/Comment: Yasir Pack. Skin intact. Current %PO Good (75-100%) Estimated Nutritional Goals BEE in Kcals: Using Current wt Calories/Kcals/Kg CBW 137.5lb/62.4kg Kcals Calculated 1560-1872kcal (25-30kcal/kg) Protein: Using Current wt Protein Calculated 62g (1g/kg) Fluid: ml 1560-1872ml (1ml/kcal) Nutritional Problem 1. Problem Problem No nutritional problem at this time. Intervention/Recommendation Comments 1. Continue with current diet order. Avg PO intake is adequate. 2. Monitor weight. CBW via bedscale 137.5lb, pt report UBW 145-150lb, pt denied recent weight changes. Expected Outcomes/Goals Expected Outcomes/Goals 1. PO intake conintue to meet at least 75% of estimated nutritional needs.
--- NOTE | 2016-11-29 02:07 | Progress Notes ---
DATE: 11/28/2016 PSYCHIATRIC PROGRESS NOTE TIME PATIENT SEEN: 9:00 a.m. SUBJECTIVE: Staff was spoken to. The patient is interviewed. Mood is noted to be anxious. The patient is stating that he is trying to tell everyone that he has a place to go, but no one is believing him. Coping skills at this time are noted to be still impaired. The patient has a very . ASSESSMENT: The patient is still paranoid. PLAN: To continue the patient with the supportive therapy. I encouraged the patient to verbalize the concerns rather than to act out. JOB# [id number]
--- NOTE | 2016-11-29 11:40 | General Progress Note ---
Subjective - Review of Systems Events since last encounter: no changed patient is noted paranoid Objective - Results Recent Labs: Laboratory Last Values POC Glucose 90 MG/DL (70 - 105) 11/17/16 06:28 - Physical Exam Vitals and I&O: Vital Signs Temp 97.8 F 11/29/16 06:07 Pulse 76 11/29/16 06:07 Resp 20 11/29/16 06:07 BP 122/77 11/29/16 06:07 Pulse Ox 99 11/29/16 06:07 Intake & Output 11/28/16 11/29/16 11/29/16 18:59 06:59 18:59 Intake Total 3400 120 Balance 3400 120 Intake: Oral 3400 120 Other: # Voids 5 3 # Bowel Movements 1 Active Medications: Current Medications Acetaminophen (Tylenol) 650 mg PO Q4HR PRN PRN Reason: Mild Pain / Temp above 100 Stop: 01/16/17 02:17 Diphenhydramine HCl (Benadryl) 50 mg PO TID PRN PRN Reason: Seasonal Allergies/Itching Stop: 01/16/17 17:00 Last Admin: 11/28/16 18:04 Dose: 50 mg Lorazepam (Ativan) 0.5 mg PO Q4HR PRN; Protocol PRN Reason: Anxiety Stop: 12/17/16 02:17 Last Admin: 11/21/16 16:57 Dose: 0.5 mg Magnesium Hydroxide (Milk Of Magnesia) 30 ml PO HS PRN PRN Reason: Constipation Olanzapine (Zyprexa) 10 mg PO HS JOVI PRN Reason: Protocol Stop: 01/21/17 19:57 Last Admin: 11/28/16 20:22 Dose: 10 mg Zolpidem Tartrate (Ambien) 5 mg PO HS PRN PRN Reason: Insomnia Stop: 01/16/17 02:17 Last Admin: 11/28/16 20:22 Dose: 5 mg General: No acute distress Neck: Supple Abdomen: Bowel sounds Neurological: Normal gait Assessment/Plan - Problem List Patient Problems: All Active Problems Acute psychosis (Acute) F23 CAD (coronary artery disease) (Acute) I25.10 H/O acute myocardial infarction (Acute) I25.2 - Plan Plan: monitor vitals/diet f/up psych as problems arise cpm Nutritional Asmnt/Malnutr-PDOC - Dietary Evaluation Malnutrition Findings (Please click <Entered> for more info): Nutritional Asmnt/Malnutrition Start: 11/22/16 16: 45 Text: Status: Complete Freq: Document 11/22/16 16:46 GSRONI (Rec: 11/22/16 16:58 [email or web address]) Nutritional Asmnt/Malnutrition Patient General Information Nutritional Screening Diagnosis Diagnosis Bipolar disorder mixed with psychotic symptoms, polysubstance abuse, 5150 Pertinent Medical Hx/Surgical Hx CAD, OR Subjective Information 71 year old male, considered homeless. Spoke to pt resting in bed, pt was pleasant and cooperative. Pt curled up under blanket, limited physical assessment, however appears overall thin without significant wasting noted. Teeth intact, denied difficulties eating, no food preferences, no allergies, denied GI problems. Pt stated appetite usually good. Pt stated UBW 145-150lb. CBW via bedscale 137.5lb. Pt appeared unaware of this weight, denied recent weight loss/changes. Avg PO itnake 75-100% of meals since adm, meeting nutritional needs. Current Diet Order/ Nutrition Support Regular Pertinent Medications MOM Pertinent Labs Reviewed. Nutritional Hx/Data Height 1.75 m Height (Calculated Centimeters) 175.3 Current Weight (lbs) 62.369 kg Weight (Calculated Kilograms) 62.4 Weight (Calculated Grams) 29509.0 Usual body Weight (lbs) 145 [place] Body Weight 160 GI Symptoms Food Allergies No Skin Integrity/Comment: Yasir Pack. Skin intact. Current %PO Good (75-100%) Estimated Nutritional Goals BEE in Kcals: Using Current wt Calories/Kcals/Kg CBW 137.5lb/62.4kg Kcals Calculated 1560-1872kcal (25-30kcal/kg) Protein: Using Current wt Protein Calculated 62g (1g/kg) Fluid: ml 1560-1872ml (1ml/kcal) Nutritional Problem 1. Problem Problem No nutritional problem at this time. Intervention/Recommendation Comments 1. Continue with current diet order. Avg PO intake is adequate. 2. Monitor weight. CBW via bedscale 137.5lb, pt report UBW 145-150lb, pt denied recent weight changes. Expected Outcomes/Goals Expected Outcomes/Goals 1. PO intake conintue to meet at least 75% of estimated nutritional needs.
--- NOTE | 2016-11-30 04:49 | Progress Notes ---
DATE: 11/29/2016 PSYCHIATRIC PROGRESS NOTE TIME PATIENT SEEN: 09:15 a.m. SUBJECTIVE: Staff was spoken to. The patient is interviewed. Mood is noted to be anxious. Affect is appropriate. The patient is denying any auditory hallucinations. No delusions are noted. The patient is happy that he is back on his medications. The patient did not suicidal or homicidal. The patient is on Zyprexa and is able to tolerate the medication. ASSESSMENT: The patient is stabilizing. PLAN: To discharge the patient today for followup on outpatient basis. JOB# [id number]
--- NOTE | 2016-12-01 18:43 | Discharge Summary ---
DATE OF DISCHARGE: 11/29/2016 This patient known to have history of multiple problems including coronary artery disease, myocardial infarction, history of hyperlipidemia. The patient was admitted for acute psychosis and followed all the medical problems. The patient improved and the patient was in stable condition. On November 29, [facility] [place], he was discharged and was advised to come back and see me in 2 days and to continue all his home medications. DIAGNOSES: Acute psychosis, improving, history of coronary artery disease, history of myocardial infarction, history of ____. JOB# [id number]
== END 2016-11-29 15:20 | disposition home or self-care (01) | DRG 885 ==
LOC: GERO 01:45
PROVIDERS: ADMIT Psychiatry & Neurology Psychiatry; ATTEND Psychiatry & Neurology Psychiatry
DX: F31.64 Bipolar disorder, current episode mixed, severe, with psychotic features (principal); F19.10 Other psychoactive substance abuse, uncomplicated; R45.87 Impulsiveness; I25.10 Atherosclerotic heart disease of native coronary artery without angina pectoris; I25.2 Old myocardial infarction
CPT/HCPCS: 71010-TC; 82948-90; 90899; J7051